=== PATIENT | male | born 1995 | race African-American/Black ===

== ENCOUNTER 2020-08-28 11:33 | Emergency (ER) | payer MEDICAID ==
[~2020-08-28] VITALS: Ht 170.2 cm; Wt 74.0 kg
[2020-08-28 11:57] VITALS: BP 130/82
[2020-08-28] MEDS ORDERED: SODIUM CHLORIDE 0.9% 1,000 ML IV ONE (12:00)
[2020-08-28 12:48] LABS: BASOPHILS % 0.4 % (0.0-2.0); EOSINOPHILS % 6.1 % (0.0-5.0); HEMATOCRIT. 44.4 % (42.0-52.0); HEMOGLOBIN. 14.8 g/dL (14.0-18.0); LYMPHOCYTES % 28.8 % (20.0-50.0); MEAN CORPUSCULAR HEMOGLOBIN 31.1 pg (28.0-32.0); MEAN PLATELET VOLUME 8.2 fl (7.4-10.4); MONOCYTES % 13.1 % (2.0-8.0); NEUTROPHILS % 51.6 % (40.0-76.0); PLATELET 270 x1000/uL (130-400); RED BLOOD CELL COUNT 4.77 mill/uL (4.7-6.1); RED CELL DISTRIBUTION WIDTH 13.4 % (11.6-14.6)
[2020-08-28 12:57] LABS: CHLORIDE 106 mEq/L (98-107)
[2020-08-28 13:05] LABS: ETHANOL BLOOD < 10 mg/dL
== END 2020-08-28 15:27 | disposition home or self-care (01) ==
LOC: ER 11:33
DX: R55 Syncope and collapse (principal); F17.200 Nicotine dependence, unspecified, uncomplicated; F12.10 Cannabis abuse, uncomplicated
CPT/HCPCS: 36415; 70450; 71045; 80053; 80320; 83690; 84484; 85025; 93005; 96360; 99285; J7030; G0480